=== PATIENT | female | born 1980 | race Caucasian/White ===

== ENCOUNTER → 2024-03-02 09:15 | Outpatient (REF) | payer BC, SELFPAY ==
[2024-03-02 12:09] LABS: % Basophils 0.6 % (0-2); % Eosinophils 1.7 % (0-6); % Lymphocytes 33.6 % (20.5-51.1); % Monocytes 5.6 % (1.7-9.3); % Neutrophils 58.5 % (42.2-75.2); Absolute Eosinophils 0.1 10^3/uL (0-0.7); Absolute Lymphocytes 1.2 10^3/uL (1.2-3.4); Absolute Monocytes 0.2 10^3/uL (0.1-0.6); Absolute Neutrophils 2.1 10^3/uL (1.4-6.5); Hematocrit 39.1 % (37.0-47.0); Hemoglobin 13.4 g/dL (12.0-16.0); Mean Corp Hgb Conc. 34.3 g/dL (33.0-37.0); Mean Corpuscular Hgb 32.8 pg (27.0-31.0); Mean Corpuscular Volume 95.6 fL (81.0-99.0); Mean Platelet Volume 10.6 fL (7.4-10.4); Nucleated Red Blood Cells % 0 %; Platelet Count 225 10^3/uL (130-400); Red Blood Cell Count 4.09 10^6/uL (4.20-5.40); Red Cell Dist. Width 12.1 % (11.5-14.5); White Blood Cell Count 3.6 10^3/uL (4.8-10.8)
[2024-03-02 12:22] LABS: ALT (SGPT) 14 U/L (0-35); AST (SGOT) 20 U/L (14-36); Albumin 4.6 g/dl (3.5-5.0); Alkaline Phosphatase 54 U/L (38-126); Blood Urea Nitrogen 12 mg/dl (7-17); Calcium 9.6 mg/dl (8.4-10.2); Carbon Dioxide 28 mmol/L (22-30); Chloride 105 mmol/L (98-107); Direct Bilirubin 0.2 mg/dl (0.0-0.4); GGTP 14 U/L (12-43); Glucose 89 mg/dl (70-99); HDL Cholesterol 55 mg/dl; LDL Cholesterol, Calculated 124 mg/dl; Potassium 4.3 mmol/L (3.5-5.1); Sodium 139 mmol/L (135-145); Total Bilirubin 0.9 mg/dl (0.2-1.3); Total Cholesterol 190 mg/dl (50-199); Total Protein 7.2 g/dl (6.3-8.2); Triglyceride 56 mg/dl (10-149); Very Low Density Lipoprotein 11 mg/dl (0-30); eGFR > 60.00
[2024-03-02 12:33] LABS: Vitamin D, 25-OH*** 46.5 ng/mL (30-80)
[2024-03-02 12:39] LABS: Erythrocyte Sed Rate 10 mm/hour (0-20)
[2024-03-02 12:41] LABS: Glycohemoglobin (HgbA1c) 4.9 % (4.0-5.6)
[2024-03-02 12:47] LABS: TSH 1.17 uIU/ml (0.47-4.68)
[2024-03-02 13:22] LABS: Folate 14.3 ng/ml (2.76-20); Vitamin B12 280 pg/ml (239-931)
[2024-03-02 14:17] LABS: Amphetamines Negative (Negative); Barbiturates Negative (Negative); Benzodiazepines Negative (Negative); Buprenorphine Negative (Negative); Cocaine Negative (Negative); Marijuana Negative (Negative); Methadone Negative (Negative); Methamphetamines Negative (Negative); Opiates Negative (Negative); Phencyclidine Negative (Negative); Tricyclic Antidepressants Negative (Negative)
== END ==
LOC: HWLAB 09:15
PROVIDERS: ATTENDING PHYSICIAN Psychiatry & Neurology Psychiatry; FAMILY PHYSICIAN Nurse Practitioner Adult Health
DX: Z79.899 Other long term (current) drug therapy (principal)
CPT/HCPCS: 36415; 80053; 80061; 80306; 82248; 82306; 82607; 82746; 82977; 83036; 84443; 85025; 85652; 93005

== ENCOUNTER → 2024-07-13 10:42 | Outpatient (REF) | payer BC, SELFPAY | LOC: WDC 10:42 | PROVIDERS: ATTENDING PHYSICIAN Nurse Practitioner Adult Health | DX: Z12.31 Encounter for screening mammogram for malignant neoplasm of breast (principal) | CPT/HCPCS: 77063; 77067 ==

== ENCOUNTER → 2024-10-11 16:57 | Outpatient (REF) | payer BC, SELFPAY | LOC: RAD 16:57 | PROVIDERS: ATTENDING PHYSICIAN Nurse Practitioner Adult Health | DX: R50.9 Fever, unspecified (principal); R10.12 Left upper quadrant pain | CPT/HCPCS: 76700 ==

== ENCOUNTER → 2024-10-13 14:13 | Outpatient (REF) | payer BC, SELFPAY | LOC: RAD 14:13 | PROVIDERS: ATTENDING PHYSICIAN Nurse Practitioner Adult Health | DX: R10.32 Left lower quadrant pain (principal); R10.12 Left upper quadrant pain | CPT/HCPCS: 74177; Q9967 ==

== ENCOUNTER → 2024-11-17 10:18 | Outpatient (REF) | payer BC, SELFPAY | LOC: HWRAD 10:18 | PROVIDERS: ATTENDING PHYSICIAN Nurse Practitioner Adult Health | DX: N83.201 Unspecified ovarian cyst, right side (principal) | CPT/HCPCS: 76830; 76856 ==

== ENCOUNTER → 2025-05-02 14:58 | Outpatient (REF) | payer OTHER, SELFPAY | LOC: HWRAD 14:58 | PROVIDERS: ATTENDING PHYSICIAN Nurse Practitioner Adult Health | DX: M25.571 Pain in right ankle and joints of right foot (principal) | CPT/HCPCS: 73610 ==

== ENCOUNTER 2025-07-03 08:33 | Outpatient (RCR) | payer OTHER, SELFPAY | END 2025-07-03 23:59 | disposition home or self-care (01) | LOC: RPT 08:33 | PROVIDERS: ATTENDING PHYSICIAN Nurse Practitioner Family; FAMILY PHYSICIAN Nurse Practitioner Adult Health | DX: N94.19 Other specified dyspareunia (principal); Z73.6 Limitation of activities due to disability; R10.20 Pelvic and perineal pain unspecified side | CPT/HCPCS: 97110; 97140; 97163; 97530 ==

== ENCOUNTER 2025-08-07 08:18 | Outpatient (RCR) | payer OTHER, SELFPAY | END 2025-08-07 23:59 | disposition home or self-care (01) | LOC: RPT 08:18 | PROVIDERS: ATTENDING PHYSICIAN Nurse Practitioner Family; FAMILY PHYSICIAN Nurse Practitioner Adult Health | DX: N94.19 Other specified dyspareunia (principal); Z73.6 Limitation of activities due to disability; R10.20 Pelvic and perineal pain unspecified side | CPT/HCPCS: 97110; 97112; 97140 ==